=== PATIENT | female | born 1985 | race Two or more races ===

== ENCOUNTER 2024-08-28 05:33 | Emergency (ER) | payer MEDICAID, SELFPAY ==
[2024-08-28 05:35] VITALS: BP 162/115; PULSE 85; RESP 17; TEMP 36.9; O2SAT 99; BMI 37.8
--- NOTE | 2024-08-28 06:40 | EDNOTE_ITS ---
ED Back Injury Pain RME/HPI General Chief Complaint: Back Pain/Injury Stated Complaint: LOW BACK PAIN RADIATING DOWN L LEG Time Seen by Provider: 08/28/24 06:19 Arrival date/time: 08/28/24 05:33 This is a 39-year-old female that is brought in by family member with complaints of left hip/buttock pain that radiates down her left leg. Patient states that this started last night. Patient states she was recently told she had high cholesterol and she needed a walk patient states she has been walking more in the afternoons. Patient denies any trauma. Patient denies any past medical history other than high cholesterol. Patient reports that she is currently on her menstrual cycle. Patient denies any loss of bowel or bladder control. Patient denies any numbness or tingling. Related Data Home Medications ?Medication ?Instructions ?Recorded ?Confirmed vit no.95-ferrous 1 tab PO QDAY 10/08/1803/10 fumarate 28 mg-folic acid 800 mcg tablet () Previous Rx's ?Medication ?Instructions ?Recorded ibuprofen 600 mg tablet 600 mg PO Q6H #30 tabs 04/01 cyclobenzaprine 10 mg tablet 10 mg PO TID PRN muscle s pasm #30 01/19/20 tabs ibuprofen 800 mg tablet 800 mg PO TID PRN pain #30 t abs 01/19/20 ibuprofen 600 mg tablet 600 mg PO Q8H PRN pain #20 t abs 11/26/23 loratadine 10 mg tablet 10 mg PO QDAY #30 tabs 12/08 cyclobenzaprine 10 mg tablet 10 mg PO HS PRN muscle sp asm #14 08/28/24 tabs ibuprofen 800 mg tablet 800 mg PO Q6H PRN pain #14 t abs 08/28/24 Allergies Allergy/AdvReac Type Severity Reaction Status Date / Time No Known Allergies Allergy Verified 08/29/24 14:50 Review of Systems Review of Systems Systems Reviewed: All systems reviewed, normal except as documented Past Medical History Past Medical History NEUROLOGIC: Negative Neurological Disorders CARDIAC: Negative Cardiac Disorders or Congestive Heart Failure RESPIRATORY: Negative Chronic Obstructive Pulmonary Disease (COPD) GASTROINTESTINAL: Negative Gastrointestinal Disorders, Hepatitis or Colorectal Cancer GENITOURINARY: Negative Genitourinary Disorders, Renal Disease or Prostate Cancer REPRODUCTIVE: Negative Breast Cancer or Testicular Cancer MUSCULOSKELETAL: Negative Musculoskeletal Disorders or Bone Cancer ENDOCRINE: Negative Endocrine Disorders, Diabetes Mellitus Type 1 or Diabetes Mellitus Type 2 HEMATOLOGIC: Negative Blood Disorders OTHER HISTORY: Positive Blood Transfusions; Negative Hospitalization, Autoimmune Disease, Down Syndrome, Developmental Delay, Shingles, Falls, Blood Transfusion Reaction, Anesthesia Reactions, Organ Transplant, Chemotherapy, Radiation Therapy, Hyperbaric Therapy, MRSA, VRSA, Vancomycin-Resistant Enterococci, Human Immunodeficiency Virus (HIV), Chicken Pox, Measles, Mumps, Rubella ([place] Measles), Pertussis, Clostridium Difficile, Cancer, Breast Cancer, Cervical Cancer, Colorectal Cancer, Lung Cancer, Ovarian Cancer, Prostate Cancer or Testicular Cancer Family History FAMILY HISTORY: Positive Family Respiratory Disorders; Negative Family Psychiatric Problems, Family Cardiac Disorders, Family Gastrointestinal Problems, Family Cancer, Family Surgery or Family Anesthesia Reaction Surgical History SURGICAL: Negative Section or Organ Transplant Social History SMOKING STATUS: Never smoker ED Exam Narrative Physical exam: VITAL SIGNS: Reviewed. GENERAL APPEARANCE: Alert and interactive, follows commands, no acute distress HEAD AND FACE: Non-traumatic. ENT: PERRL, conjuctiva pink and clear, eyelid no trauma, Mucous membrane moist. NECK: Supple, nontender, no nuchal rigidity. CHEST: No tenderness, no crepitus, no paradoxical movement, no retractions. LUNGS: breathing even and unlabored HEART: Regular rate, cap refill less than 2 seconds ABDOMEN: Soft, nondistended, no guarding, nontender NEUROLOGICAL: Gross motor function intact sensory function intact, Appropriate for age. MUSCULOSKELETAL: low back nontender, full range of motion. pain with movement. No palpable pain to palpation to the lower lumbar spine. EXTREMITIES: No redness no swelling no skin breakdown on bilateral foot and leg. Distal neurovascular status intact bilateral foot SKIN: Color pink, dry, no rash, no lacerations, no abrasions, no contusions. Course Quality Measures none Orders Category Date Time Status CYCLObenzaPRINE [Flexeril] Med 08/28/24 06:37 Discontinued 10 mg PO X1 ONE HYDROcodone*/APAP 5/325 [[place] 5/325] Med 08/28/24 06:37 Discontinued 1 tab PO X1 ONE Ketorolac Inj [Toradol Inj] Med 08/28/24 06:37 Discontinued 60 mg IM X1 ONE Metoclopramide Inj [Reglan Inj] Med 08/28/24 06:37 Discontinued 10 mg IM X1 ONE Vital Signs Vital signs: Vital Signs Temperature 98.5 F 08/28/24 05:35 Pulse Rate 85 08/28/24 05:35 Respiratory Rate 17 08/28/24 05:35 Blood Pressure 162/115 H 08/28/24 05:35 Pulse Oximetry (%) 99 08/28/24 05:35 Oxygen Delivery Method Room Air 08/28/24 05:35 Back Pain / Injury MDM Narrative MDM Narrative:: Today we gave her [place], Flexeril, Toradol, and Reglan. I explained to patient that she may need further testing such as a CT or MRI of her lower back if this continues. Today we gave her [place], Flexeril, Toradol, and Reglan. I went looking for patient in the lobby To see what her pain level was at. Patient not found. Called patient cell phone number and there was no [phone] Cell Phone. Pt eloped aout of department after medications Patient data External records reviewed:: [facility] previous records Clinical information provided by:: patient Social determinants that could affect healthcare access:: none Patient has the following chronic illnesses:: Hyperlipidemia How is presenting disease/condition affected by chronic disease/condition?: no chronic disease Evaluation data The following diagnostics were reviewed and interpreted by me:: other (specify) (None) Lab and/or radiology exams considered but not ordered:: None Interpretation Summary: None Medications / Prescriptions Medications or Prescriptions considered but not ordered:: None Medication administrations:: Medication Administration History Discontinued Medications Hydrocodone Bitart/Acetaminophen (Hydrocodone/Apap 5/325 Tablet) 1 tab PO X1 ONE Stop: 08/28/24 06:38 Last Admin: 08/28/24 06:54 Dose: 1 tab Documented By: XENA Cyclobenzaprine HCl (Cyclobenzaprine 5 Mg Tablet) 10 mg PO X1 ONE Stop: 08/28/24 06:38 Last Admin: 08/28/24 06:54 Dose: 10 mg Documented By: XENA Ketorolac Tromethamine (Ketorolac Inj 60 Mg/2 Ml Vial) 60 mg IM X1 ONE Stop: 08/28/24 06:38 Last Admin: 08/28/24 06:55 Dose: 60 mg Documented By: XENA Metoclopramide HCl (Metoclopramide Inj 5 Mg/Ml Vial 2 Ml) 10 mg IM X1 ONE; Protocol Stop: 08/28/24 06:38 Last Admin: 08/28/24 06:55 Dose: 10 mg Documented By: XENA See MAR Consultations Consultation(s) initiated? (list below): No Diagnosis Differential diagnosis back pain/injury: lumbar radiculopathy, strain of lumbar region and renal colic Most likely diagnosis given after review of the tests above:: Back pain likely sciatica Admission Indicated Admission indicated?: not indicated Admission Request Was there a request for admission?: No Disposition Plan Disposition Plan: other (specify) (Elopement) Discharge Plan Plan Patient Disposition: Elopement Patient condition on transfer: Stable Prescriptions/Referrals Prescriptions/Med Rec: New cyclobenzaprine 10 mg tablet 10 mg PO HS PRN (Reason: muscle spasm) Qty: 14 0RF ibuprofen 800 mg tablet 800 mg PO Q6H PRN (Reason: pain) Qty: 14 0RF No Action PNV cmb#95-ferrous fumarate-FA [] 28 mg iron- 800 mcg Tablet 1 tab PO QDAY ibuprofen 600 mg tablet 600 mg PO Q6H Qty: 30 0RF cyclobenzaprine 10 mg tablet 10 mg PO TID PRN (Reason: muscle spasm) Qty: 30 0RF ibuprofen 800 mg tablet 800 mg PO TID PRN (Reason: pain) Qty: 30 0RF ibuprofen 600 mg tablet 600 mg PO Q8H PRN (Reason: pain) Qty: 20 0RF loratadine 10 mg tablet 10 mg PO QDAY Qty: 30 0RF Problem List Clinical Impression: Back pain Patient/Caregiver Discharge Instructions Discharge Activity: activity as tolerated Education Materials: ED Back Pain (Acute or Chronic) Additional Instructions: Follow up with primary provider in 1-2 days. Come back to ED if symptoms change or worsen Print Language: German Stand Alone Forms: Alexandra Award Info., Patient Portal Info Letter PA/SLATE SPLITTING SUPERVISOR Supervising Physician PA/SLATE SPLITTING SUPERVISOR Supervising Physician: olivia
[2024-08-28] MEDS: HYDROcodone/APAP 5/325 TABLET 1 TAB PO (06:54)
[2024-08-28] MEDS: CYCLObenzaPRINE 5 MG TABLET 10 MG PO (06:54)
[2024-08-28] MEDS: METOCLOPRAMIDE INJ 5 MG/ML VIAL 2 ML 10 MG IM (06:55)
[2024-08-28] MEDS: KETOROLAC INJ 60 MG/2 ML VIAL IM (06:55)
== END 2024-08-28 08:07 | disposition left against medical advice (07) ==
PROVIDERS: Emergency Provider Emergency Medicine; PCP Registered Nurse Pediatrics
DX: M54.50 Low back pain, unspecified (principal); Z53.29 Procedure and treatment not carried out because of patient's decision for other reasons
CPT/HCPCS: 96372; 99281; J1885; J2765; A9270

== ENCOUNTER 2024-08-29 14:47 | Emergency (ER) | payer MEDICAID, SELFPAY ==
[2024-08-29 15:03] VITALS: BP 170/90; PULSE 90; RESP 18; TEMP 36.6; O2SAT 97; BMI 38.9
--- NOTE | 2024-08-29 15:19 | XR_ITS ---
Examination: Duplex scan of the lower extremity, unilateral left complete Date and time of exam: August 29, 2024 1534 hrs. Indications: Onset severe leg pain beginning this morning Technique: Duplex scan of the extremity veins using B-mode/grayscale imaging and Doppler spectral analysis and color flow Attention is directed to internal echogenicity, compression and augmentation involving these veins, color flow assessment, spectral analysis Findings: Major deep venous structures in the extremity demonstrate normal course and caliber. There is no evidence of deep vein thrombosis. Normal color flow and spectral analysis Impression: Negative for DVT..
--- NOTE | 2024-08-29 15:19 | XR_ITS ---
Examination:Left hip AP, lateral, AP pelvis 3 views Technique: Hip AP lateral, AP pelvis, 3 views Exam date and time: August 29, 2024, 1614 hours INDICATIONS: Left hip pain beginning one week ago. FINDINGS: No left hip fracture or dislocation No arthritic change. Right hip bones of the pelvis intact IMPRESSION: Negative for osseous abnormality
[2024-08-29] MEDS: HYDROcodone/APAP 5/325 TABLET 1 TAB PO (16:40)
[2024-08-29] MEDS: KETOROLAC INJ 60 MG/2 ML VIAL 30 MG IM (16:40)
--- NOTE | 2024-08-29 17:38 | PD.EDLOWEX ---
Lower Extremity Injury RME/HPI General Chief Complaint: Ankle/Foot Injury Stated Complaint: hip pain Time Seen by Provider: 08/29/24 14:53 Source: patient Arrival date/time: 08/29/24 14:47 This is a case of 39-year-old female who came in in the emergency room due to left hip pain radiating to the left lateral lower extremity for 4 days. Patient denies any neck pain or lower back pain patient was here yesterday for lower back pain but eloped prior to be seen by the provider patient denies any injury or trauma denies any numbness weakness or tingling sensation Limitations: no limitations Related Data Home Medications ?Medication ?Instructions ?Recorded ?Confirmed vit no.95-ferrous 1 tab PO QDAY 10/08/18 03/22/19 fumarate 28 mg-folic acid 800 mcg tablet () Previous Rx's ?Medication ?Instructions ?Recorded ibuprofen 600 mg tablet 600 mg PO Q6H #30 tabs 04/01/19 cyclobenzaprine 10 mg tablet 10 mg PO TID PRN muscle spasm #30 01/19/20 tabs ibuprofen 800 mg tablet 800 mg PO TID PRN pain #30 tabs 01/19/20 ibuprofen 600 mg tablet 600 mg PO Q8H PRN pain #20 tabs 11/26/23 loratadine 10 mg tablet 10 mg PO QDAY #30 tabs 12/09/23 cyclobenzaprine 10 mg tablet 10 mg PO HS PRN muscle spasm #14 08/28/24 tabs ibuprofen 800 mg tablet 800 mg PO Q6H PRN pain #14 tabs 08/28/24 cyclobenzaprine 10 mg tablet 10 mg PO BID PRN muscle spasm #10 08/29/24 tabs hydrocodone 5 mg-acetaminophen 325 1 tab PO Q6H PRN pain #10 tabs 08/29/24 mg tablet ibuprofen 800 mg tablet 800 mg PO Q8H PRN pain #20 tabs 08/29/24 Allergies Allergy/AdvReac Type Severity Reaction Status Date / Time No Known Allergies Allergy Verified 08/29/24 14:50 Review of Systems Review of Systems Systems Reviewed: All systems reviewed, normal except as documented Constitutional Constitutional: Reports system reviewed and no additional complaints, except as documented ENT Ears, Nose, Mouth, and Throat: Denies neck pain Cardiovascular Cardiovascular: Reports system reviewed and no additional complaints, except as documented Gastrointestinal Gastrointestinal: Reports system reviewed and no additional complaints, except as documented Musculoskeletal Musculoskeletal: Reports system reviewed and no additional complaints, except as documented, Reports as per HPI, Denies abnormal gait, Denies arthralgias, Denies atrophy, Denies back pain, Denies deformity, Denies joint swelling, Denies limited range of motion, Denies loss of height, Denies muscle cramps, Denies muscle weakness, Denies myalgias, Denies neck pain, Denies numbness, Denies radiating pain into limb, Denies stiffness and Denies tingling Neurologic Neurologic: Reports system reviewed and no additional complaints, except as documented, Reports as per HPI, Denies abnormal gait, Denies numbness and Denies tingling Past Medical History Past Medical History NEUROLOGIC: Negative Neurological Disorders CARDIAC: Negative Cardiac Disorders or Congestive Heart Failure RESPIRATORY: Negative Chronic Obstructive Pulmonary Disease (COPD) GASTROINTESTINAL: Negative Gastrointestinal Disorders, Hepatitis or Colorectal Cancer GENITOURINARY: Negative Genitourinary Disorders, Renal Disease or Prostate Cancer REPRODUCTIVE: Negative Breast Cancer or Testicular Cancer MUSCULOSKELETAL: Negative Musculoskeletal Disorders or Bone Cancer ENDOCRINE: Negative Endocrine Disorders, Diabetes Mellitus Type 1 or Diabetes Mellitus Type 2 HEMATOLOGIC: Negative Blood Disorders OTHER HISTORY: Positive Blood Transfusions; Negative Hospitalization, Autoimmune Disease, Down Syndrome, Developmental Delay, Shingles, Falls, Blood Transfusion Reaction, Anesthesia Reactions, Organ Transplant, Chemotherapy, Radiation Therapy, Hyperbaric Therapy, MRSA, VRSA, Vancomycin-Resistant Enterococci, Human Immunodeficiency Virus (HIV), Chicken Pox, Measles, Mumps, Rubella ([place] Measles), Pertussis, Clostridium Difficile, Cancer, Breast Cancer, Cervical Cancer, Colorectal Cancer, Lung Cancer, Ovarian Cancer, Prostate Cancer or Testicular Cancer Family History FAMILY HISTORY: Positive Family Respiratory Disorders; Negative Family Psychiatric Problems, Family Cardiac Disorders, Family Gastrointestinal Problems, Family Cancer, Family Surgery or Family Anesthesia Reaction Surgical History SURGICAL: Negative Section or Organ Transplant Social History SMOKING STATUS: Never smoker ED Exam General Limitations: Present no limitations General appearance: Present alert and in no apparent distress Head Head exam: Present atraumatic, normocephalic and normal inspection Eye Eye exam: Present normal appearance, PERRL and EOMI ENT ENT exam: Present normal exam, normal oropharynx and mucous membranes moist Neck Neck exam: Present normal inspection, full ROM and trachea midline; Absent tenderness, meningismus, lymphadenopathy or thyromegaly Chest Chest inspection: Present normal inspection and symmetric chest wall rise Respiratory Respiratory exam: Present normal lung sounds bilaterally; Absent respiratory distress, wheezes, stridor, accessory muscle use or prolonged expiratory phase Cardiovascular Cardiovascular exam: Present regular rate, normal rhythm and normal heart sounds Abdominal Exam Abdominal exam: Present soft and normal bowel sounds Extremities Exam Extremities exam: Present normal inspection and full ROM Expanded Lower Extremity Exam Upper leg exam: Present normal inspection, full ROM and tenderness (Mild tenderness on the left hip no swelling no crepitation no deformity no redness no ecchymosis ROM intact neurovascular intact negative Herrera signs negative Homans signs no calf tenderness); Absent swelling, abrasion, laceration, ecchymosis, deformity, crepitus, dislocation or erythema Knee exam: Present normal inspection and full ROM; Absent tenderness or swelling Lower leg exam: Present normal inspection and full ROM; Absent tenderness, swelling, abrasion, laceration, ecchymosis, deformity, crepitus, dislocation, erythema, palpable cord, Homans' sign or Achilles tendon intact Back Exam Back exam: Present normal inspection and full ROM; Absent tenderness, CVA tenderness (R), CVA tenderness (L), muscle spasm, paraspinal tenderness, vertebral tenderness, rashes, sciatic notch tenderness (R), sciatic notch tenderness (L), straight leg raise (R) or straight leg raise (L) Neurological Exam Neurological exam: Present alert, oriented X3, CN II-XII intact, normal gait and reflexes normal; Absent motor sensory deficit Psychiatric Psychiatric exam: Present normal affect and normal mood Skin Skin exam: Present warm, dry, intact and normal color Course Quality Measures none Orders Category Date Time Status US venous doppler LE LT Stat Exams 08/29/24 15:19 Completed XR hip LT w pelvis 2-3V Stat Exams 08/29/24 15:19 Taken HYDROcodone*/APAP 5/325 [[place] 5/325] Med 08/29/24 16:24 Discontinued 1 tab PO X1 ONE Ketorolac Inj [Toradol Inj] Med 08/29/24 16:24 Discontinued 30 mg IM X1 ONE Vital Signs Vital signs: Vital Signs Temperature 97.9 F 08/29/24 15:03 Pulse Rate 90 08/29/24 15:03 Respiratory Rate 18 08/29/24 15:03 Blood Pressure 170/90 H 08/29/24 15:03 Pulse Oximetry (%) 97 08/29/24 15:03 Oxygen Delivery Method Room Air 08/29/24 15:03 Oxygen saturation 97% in room air Extremity Injury, Lower MDM Narrative MDM Narrative:: This is a case of 39-year-old female who came in in the emergency room due to left hip pain radiating to the left lateral lower extremity for 4 days. Patient denies any neck pain or lower back pain patient was here yesterday for lower back pain but eloped prior to be seen by the provider patient denies any injury or trauma denies any numbness weakness or tingling sensation physical examination patient is awake alert oriented not in distress not toxic look back exam is normal no crepitation no deformity no paraspinal no para vertebral tenderness no swelling steady gait noted mild to moderate tenderness on the left hip no crepitation no deformity no swelling negative Herrera signs negative Homans' sign no calf tenderness no claudication the rest of the left lower extremities exam were normal ultrasound of the left lower leg negative for DVT x-ray showed no fracture no dislocation but with mild arthritic changes at this point patient will be discharged as sciatica pain patient was given Toradol and [place] which patient condition markedly improved she was advised to see an orthopedic surgeon for possible MRI of the lower back to rule out herniated disc and further treatment of sciatica she was also advised to see a pain management doctor for pain control patient understood the discharge instruction patient also advised for any worsening persistent or recurrent symptoms return to the emergency room immediately or call 911 Patient was discharged with comfortable condition walking with stable gait. Patient verbalized no further complains explained diagnosis and answered patient question. Patient is comfortable with the proposed management plan including the need to follow up with his/her primary care physician and any specialist if applicable Discussed patient for any urgent condition or worsening sx, He/She needed to go to emergency room immediately or call 911. Patient acknowledge the responsibility to follow up as instructed and to monitor her/his symptoms. For any persistence of the symptoms for more than 3-5 days return precaution advised. Discussed the result of the test and was given printed discharge instruction Patient data External records reviewed:: [facility] previous records Clinical information provided by:: patient Social determinants that could affect healthcare access:: none Patient has the following chronic illnesses:: None How is presenting disease/condition affected by chronic disease/condition?: no chronic disease Evaluation data The following diagnostics were reviewed and interpreted by me:: radiology exam(s) Lab and/or radiology exams considered but not ordered:: Reviewed Interpretation Summary: Reviewed Medications / Prescriptions Medications or Prescriptions considered but not ordered:: Given Medication administrations:: Medication Administration History Discontinued Medications Hydrocodone Bitart/Acetaminophen (Hydrocodone/Apap 5/325 Tablet) 1 tab PO X1 ONE Stop: 08/29/24 16:25 Last Admin: 08/29/24 16:40 Dose: 1 tab Documented By: AGUILA Ketorolac Tromethamine (Ketorolac Inj 60 Mg/2 Ml Vial) 30 mg IM X1 ONE Stop: 08/29/24 16:25 Last Admin: 08/29/24 16:40 Dose: 30 mg Documented By: AGUILA Given Consultations Consultation(s) initiated? (list below): No Diagnosis Extremity Injury, Lower Differential Diagnosis: other (Sciatica) Most likely diagnosis given after review of the tests above:: Sciatic Admission Indicated Admission indicated?: not indicated Explain why admission is indicated or not indicated:: Not indicated Admission Request Was there a request for admission?: No Admission Attestation Admission request attestation: Not indicated Disposition Plan Disposition Plan: Discharge Discharge Attestation Discharge Attestation: The patient and all family members were given an opportunity to ask questions and understood the discharge instructions. Discharge instructions specifically effects, indications for sooner follow up or return to the emergency department, and the expected course of current diagnosis. Patient condition: Stable Discharge Plan Plan Patient Disposition: HOME (Self Care) Patient condition on transfer: Stable Prescriptions/Referrals Prescriptions/Med Rec: New ibuprofen 800 mg tablet 800 mg PO Q8H PRN (Reason: pain) Qty: 20 0RF cyclobenzaprine 10 mg tablet 10 mg PO BID PRN (Reason: muscle spasm) Qty: 10 0RF hydrocodone-acetaminophen 5-325 mg tablet 1 tab PO Q6H MDD MAX 4 TBS A DAY PRN (Reason: pain) Qty: 10 0RF No Action PNV cmb#95-ferrous fumarate-FA [] 28 mg iron- 800 mcg Tablet 1 tab PO QDAY ibuprofen 600 mg tablet 600 mg PO Q6H Qty: 30 0RF cyclobenzaprine 10 mg tablet 10 mg PO TID PRN (Reason: muscle spasm) Qty: 30 0RF ibuprofen 800 mg tablet 800 mg PO TID PRN (Reason: pain) Qty: 30 0RF ibuprofen 600 mg tablet 600 mg PO Q8H PRN (Reason: pain) Qty: 20 0RF loratadine 10 mg tablet 10 mg PO QDAY Qty: 30 0RF cyclobenzaprine 10 mg tablet 10 mg PO HS PRN (Reason: muscle spasm) Qty: 14 0RF ibuprofen 800 mg tablet 800 mg PO Q6H PRN (Reason: pain) Qty: 14 0RF Referrals: Jose Puente MD [Primary Care Provider] - In 1 week Problem List Clinical Impression: Hip joint pain, Sciatica, Leg pain Patient/Caregiver Discharge Instructions Education Materials: How Your Hip Works, Hip Safety: Mastering Daily Tasks, ED Sciatica, ED Muscle Strain, Extremity, ED RICE Additional Instructions: Follow-up with your primary care physician in 2 days for reevaluation and to be referred to Ortho for possible MRI of your lower back to rule out herniated disc and further evaluation and treatment of sciatica you need also to be referred to pain management doctor for pain control ice pack and warm compress as needed for pain for any worsening symptoms or any emergent concern return to the emergency room immediately or call 911 Print Language: Eritrean Stand Alone Forms: Alexandra Award Info., Patient Portal Info Letter PA/JOB CHANGE CREW MEMBER Supervising Physician PA/JOB CHANGE CREW MEMBER Supervising Physician: dr conley
[2024-08-29 18:01] VITALS: BP 126/70; PULSE 77; RESP 18; TEMP 36.8; O2SAT 100
== END 2024-08-29 18:03 | disposition home or self-care (01) ==
PROVIDERS: Emergency Provider Family Medicine; PCP Family Medicine
DX: M54.32 Sciatica, left side (principal)
CPT/HCPCS: 73502; 93971; 96372; 99284; J1885; A9270

== ENCOUNTER 2024-09-03 13:48 | Emergency (ER) | payer MEDICAID, SELFPAY ==
[2024-09-03 13:57] VITALS: BP 163/95; PULSE 83; RESP 20; TEMP 36.9; O2SAT 98
[2024-09-03] MEDS: KETOROLAC INJ 60 MG/2 ML VIAL 30 MG IM (14:35)
--- NOTE | 2024-09-03 14:37 | PD.EDEXREM ---
ED Extremity Problem RME/HPI General Chief complaint: Extremity Problem,Nontraumatic Stated complaint: Left hip pain that goes to left foot X 8 days Time Seen by Provider: 09/03/24 14:20 Source: patient Arrival date/time: 09/03/24 13:48 39-year-old female with no known medical history presents to the emergency room with a chief complaint of left-sided hip pain that radiates down her left foot x 8 days Mode of arrival: ambulatory Limitations: no limitations Related Data Home Medications ?Medication ?Instructions ?Recorded ?Confirmed vit no.95-ferrous 1 tab PO QDAY 10/08/18 03/22/19 fumarate 28 mg-folic acid 800 mcg tablet () Previous Rx's ?Medication ?Instructions ?Recorded ibuprofen 600 mg tablet 600 mg PO Q6H #30 tabs 04/01/19 cyclobenzaprine 10 mg tablet 10 mg PO TID PRN muscle spasm #30 01/19/20 tabs ibuprofen 800 mg tablet 800 mg PO TID PRN pain #30 tabs 01/19/20 ibuprofen 600 mg tablet 600 mg PO Q8H PRN pain #20 tabs 11/26/23 loratadine 10 mg tablet 10 mg PO QDAY #30 tabs 12/09/23 cyclobenzaprine 10 mg tablet 10 mg PO HS PRN muscle spasm #14 08/28/24 tabs ibuprofen 800 mg tablet 800 mg PO Q6H PRN pain #14 tabs 08/28/24 cyclobenzaprine 10 mg tablet 10 mg PO BID PRN muscle spasm #10 08/29/24 tabs hydrocodone 5 mg-acetaminophen 325 1 tab PO Q6H PRN pain #10 tabs 08/29/24 mg tablet ibuprofen 800 mg tablet 800 mg PO Q8H PRN pain #20 tabs 08/29/24 Allergies Allergy/AdvReac Type Severity Reaction Status Date / Time No Known Allergies Allergy Verified 09/03/24 13:55 Review of Systems Review of Systems Systems Reviewed: All systems reviewed, normal except as documented Constitutional Constitutional: Reports system reviewed and no additional complaints, except as documented, Denies fatigue, Denies fever(s), Denies headache(s) and Denies weakness Eyes Eyes: Reports system reviewed and no additional complaints, except as documented, Denies blurry vision and Denies change in vision ENT Ears, Nose, Mouth, and Throat: Reports system reviewed and no additional complaints, except as documented, Denies otalgia, Denies headache(s), Denies nasal congestion, Denies throat swelling and Denies vertigo Cardiovascular Cardiovascular: Reports system reviewed and no additional complaints, except as documented, Denies chest pain, Denies dyspnea and Denies dyspnea on exertion Respiratory Respiratory: Reports system reviewed and no additional complaints, except as documented, Denies chest congestion, Denies cough, Denies dyspnea, Denies dyspnea on exertion and Denies wheezing Gastrointestinal Gastrointestinal: Reports system reviewed and no additional complaints, except as documented, Denies abdominal pain, Denies cramping, Denies nausea and Denies vomiting Genitourinary Genitourinary: Reports system reviewed and no additional complaints, except as documented Musculoskeletal Musculoskeletal: Reports system reviewed and no additional complaints, except as documented, Reports arthralgias, Denies back pain, Reports joint swelling and Reports limited range of motion Integumentary/Breasts Skin/Breast: Reports system reviewed and no additional complaints, except as documented and Denies wounds Neurologic Neurologic: Reports system reviewed and no additional complaints, except as documented, Denies confusion, Denies headache(s), Denies lack of coordination, Denies vertigo and Denies weakness Psychiatric Psychiatric: Reports system reviewed and no additional complaints, except as documented, Denies anxiety, Denies confusion, Denies depression, Denies paranoia, Denies suicidal ideation and Denies tactile hallucinations Endocrine Endocrine: Reports system reviewed and no additional complaints, except as documented and Denies fatigue Hematologic/Lymphatic Hematologic/Lymphatic: Reports system reviewed and no additional complaints, except as documented and Denies lymphadenopathy Allergic/Immunologic Allergic/Immunologic: Reports system reviewed and no additional complaints, except as documented, Denies throat swelling, Denies urticaria and Denies wheezing Past Medical History Past Medical History NEUROLOGIC: Negative Neurological Disorders CARDIAC: Negative Cardiac Disorders or Congestive Heart Failure RESPIRATORY: Negative Chronic Obstructive Pulmonary Disease (COPD) GASTROINTESTINAL: Negative Gastrointestinal Disorders, Hepatitis or Colorectal Cancer GENITOURINARY: Negative Genitourinary Disorders, Renal Disease or Prostate Cancer REPRODUCTIVE: Negative Breast Cancer or Testicular Cancer MUSCULOSKELETAL: Negative Musculoskeletal Disorders or Bone Cancer ENDOCRINE: Negative Endocrine Disorders, Diabetes Mellitus Type 1 or Diabetes Mellitus Type 2 HEMATOLOGIC: Negative Blood Disorders OTHER HISTORY: Positive Blood Transfusions; Negative Hospitalization, Autoimmune Disease, Down Syndrome, Developmental Delay, Shingles, Falls, Blood Transfusion Reaction, Anesthesia Reactions, Organ Transplant, Chemotherapy, Radiation Therapy, Hyperbaric Therapy, MRSA, VRSA, Vancomycin-Resistant Enterococci, Human Immunodeficiency Virus (HIV), Chicken Pox, Measles, Mumps, Rubella (Romanian Measles), Pertussis, Clostridium Difficile, Cancer, Breast Cancer, Cervical Cancer, Colorectal Cancer, Lung Cancer, Ovarian Cancer, Prostate Cancer or Testicular Cancer Family History FAMILY HISTORY: Positive Family Respiratory Disorders; Negative Family Psychiatric Problems, Family Cardiac Disorders, Family Gastrointestinal Problems, Family Cancer, Family Surgery or Family Anesthesia Reaction Surgical History SURGICAL: Negative Section or Organ Transplant Social History SMOKING STATUS: Never smoker ED Exam General Limitations: Present no limitations General appearance: Present alert and in no apparent distress Head Head exam: Present atraumatic Eye Eye exam: Present normal appearance, PERRL and EOMI ENT ENT exam: Present normal exam, normal oropharynx and mucous membranes moist Neck Neck exam: Present normal inspection, full ROM and trachea midline Chest Chest inspection: Present normal inspection and symmetric chest wall rise Respiratory Respiratory exam: Present normal lung sounds bilaterally Cardiovascular Cardiovascular exam: Present regular rate, normal rhythm and normal heart sounds Abdominal Exam Abdominal exam: Present soft and normal bowel sounds Extremities Exam Extremities exam: Present normal inspection and full ROM Back Exam Back exam: Present normal inspection, full ROM, tenderness and sciatic notch tenderness (L) Neurological Exam Neurological exam: Present alert, oriented X3 and CN II-XII intact Psychiatric Psychiatric exam: Present normal affect and normal mood Skin Skin exam: Present warm, dry, intact and normal color Course Quality Measures none Orders Category Date Time Status Ketorolac Inj [Toradol Inj] Med 09/03/24 14:17 Discontinued 30 mg IM X1 ONE Vital Signs Vital signs: Vital Signs Temperature 98.4 F 09/03/24 13:57 Pulse Rate 83 09/03/24 13:57 Respiratory Rate 20 09/03/24 13:57 Blood Pressure 163/95 H 09/03/24 13:57 Pulse Oximetry (%) 98 09/03/24 13:57 Oxygen Delivery Method Room Air 09/03/24 13:57 Extremity Problem MDM Narrative MDM Narrative:: 39-year-old female with no known medical history presents to the emergency room with a chief complaint of left-sided hip pain that radiates down her left foot x 8 days Patient is hemodynamically stable and in no apparent distress. Physical examination shows left-sided sciatic notch tenderness. The patient denies any trauma or any ground-level falls. Patient denies any saddle anesthesia or any numbness. The patient was able to ambulate but states she is having pain specially with different positional changes. Medication was given to the patient Patient was discharged and educated to follow-up with primary care provider in the next 24 to 48 hours and return to the emergency room for any evidence of worsening signs or symptoms Patient data External records reviewed:: [facility] previous records Clinical information provided by:: patient Social determinants that could affect healthcare access:: none Patient has the following chronic illnesses:: No chronic illness How is presenting disease/condition affected by chronic disease/condition?: no chronic disease Evaluation data The following diagnostics were reviewed and interpreted by me:: lab results and radiology exam(s) Lab and/or radiology exams considered but not ordered:: Labs and radiology exams considered in order Interpretation Summary: N/A Medications / Prescriptions Medications or Prescriptions considered but not ordered:: Medication given Medication administrations:: Medication Administration History Discontinued Medications Ketorolac Tromethamine (Ketorolac Inj 60 Mg/2 Ml Vial) 30 mg IM X1 ONE Stop: 09/03/24 14:18 Last Admin: 09/03/24 14:35 Dose: 30 mg Documented By: CN Medication given Consultations Consultation(s) initiated? (list below): No Diagnosis Extremity Problem Differential Diagnosis: other (Sciatica/acute leg pain) Most likely diagnosis given after review of the tests above:: Sciatica Admission Indicated Admission indicated?: not indicated Admission Request Was there a request for admission?: No Disposition Plan Disposition Plan: Discharge Discharge Attestation Discharge Attestation: The patient and all family members were given an opportunity to ask questions and understood the discharge instructions. Discharge instructions specifically effects, indications for sooner follow up or return to the emergency department, and the expected course of current diagnosis. Patient condition: Stable Discharge Plan Plan Patient Disposition: HOME (Self Care) Discharge Disposition comment: stable Prescriptions/Referrals Prescriptions/Med Rec: No Action PNV cmb#95-ferrous fumarate-FA [] 28 mg iron- 800 mcg Tablet 1 tab PO QDAY ibuprofen 600 mg tablet 600 mg PO Q6H Qty: 30 0RF cyclobenzaprine 10 mg tablet 10 mg PO TID PRN (Reason: muscle spasm) Qty: 30 0RF ibuprofen 800 mg tablet 800 mg PO TID PRN (Reason: pain) Qty: 30 0RF ibuprofen 600 mg tablet 600 mg PO Q8H PRN (Reason: pain) Qty: 20 0RF loratadine 10 mg tablet 10 mg PO QDAY Qty: 30 0RF cyclobenzaprine 10 mg tablet 10 mg PO HS PRN (Reason: muscle spasm) Qty: 14 0RF ibuprofen 800 mg tablet 800 mg PO Q6H PRN (Reason: pain) Qty: 14 0RF ibuprofen 800 mg tablet 800 mg PO Q8H PRN (Reason: pain) Qty: 20 0RF cyclobenzaprine 10 mg tablet 10 mg PO BID PRN (Reason: muscle spasm) Qty: 10 0RF hydrocodone-acetaminophen 5-325 mg tablet 1 tab PO Q6H MDD MAX 4 TBS A DAY PRN (Reason: pain) Qty: 10 0RF Problem List Clinical Impression: Sciatica Patient/Caregiver Discharge Instructions Education Materials: ED Sciatica Additional Instructions: Por favor, consulte con [facility] [facility] en las pr?ximas 24 a 48 horas. Becky hallazgos son compatibles con ci?danielle. Deber? consultar con [place] [facility] para que lo derive a fisioterapia o a un quiropr?ctico. Si esto no funciona, podr?a estar indicado derivarlo a un especialista en [place]. Si observa cualquier signo de empeoramiento de los signos o s?ntomas, acuda a urgencias de inmediato. Print Language: Khmer Stand Alone Forms: Alexandra Award Info., Patient Portal Info Letter PA/[employer] [facility] [employer] Supervising Physician PA/[employer] [facility] [employer] Supervising Physician: Dr. Madrid
== END 2024-09-03 15:16 | disposition home or self-care (01) ==
LOC: SERX 14:41
PROVIDERS: Emergency Provider Emergency Medicine; PCP Family Medicine
DX: M54.32 Sciatica, left side (principal)
CPT/HCPCS: 96372; 99283; J1885